=== PATIENT | female | born 1955 | race African-American/Black ===

== ENCOUNTER 2016-12-24 10:43 | Emergency (ER) | payer OTHER ==
[~2016-12-24] VITALS: Ht 167.6 cm; Wt 51.3 kg
[~2016-12-24 10:43] MED LIST: CIPRO250 MG PO; DETROL LA4 MG PO; FLEXERIL10 MG PO; KEFLEX500 MG PO; MACROBID100 MG PO; MIRALAX17 GM PO; MOBIC7.5 MG PO; MOTRIN800 MG PO; NEURONTIN300 MG PO; NO MEDS; PERCOCET 5/31 TABLET PO; PHENERGAN-CODE120 ML PO; PRILOSEC OTC20 MG PO; PYRIDIUM100 MG PO; ULTRAM50 MG PO; ZOFRAN ODT8 MG PO; ZOFRAN4 MG PO; ZOFRAN8 MG PO; ZYRTEC10 M2 PO
[2016-12-24 12:14] LABS: HEMATOCRIT 41.7 % (36.0-46.0); MCH 30.8 PG (29.0-34.0); MCHC 33.8 G/DL (30.0-36.0); MEAN PLAT.VOLUME 9.2 uM^3 (9.5-12.4); PLATELET COUNT 189 K/uL (156-360); RBC DIS.WIDTH-CV 12.7 % (11.8-14.6); RBC DIS.WIDTH-SD 42.3 % (39-53); RED BLOOD COUNT 4.58 M/uL (3.80-5.20); WHITE BLOOD COUNT 5.5 K/uL (4.1-10.2)
[2016-12-24 12:32] LABS: CHLORIDE 109 mEq/L (99-109); POTASSIUM 3.8 mEq/L (3.7-5.4); SODIUM 140 mEq/L (136-147)
[2016-12-24 12:34] LABS: GLUCOSE 91 mg/dL (70-99)
[2016-12-24 12:35] LABS: ANION GAP 7 MEQ/L (2-14)
[2016-12-24 12:38] LABS: ALKALINE PHOSPHATASE 77 IU/L (3-129); GFR ESTIMATE (CALCULATED) > 59 mL/min/
[2016-12-24 12:39] LABS: UREA NITROGEN (BUN) 12 mg/dL (9-23)
[2016-12-24 12:41] LABS: LIPASE 54 U/L (1.0-51.0)
[2016-12-24 13:23] LABS: ADD MIUA? YES; BILIRUBIN NEGATIVE; BLOOD NEGATIVE; COLOR YELLOW ((YELLOW)); GLUCOSE (STRIP) NEGATIVE; KETONES NEGATIVE; LEUKOCYTES LARGE; NITRITE NEGATIVE; PROTEIN (STRIP) NEGATIVE; SPECIFIC GRAVITY 1.008 (1.000-1.030)
[2016-12-24 13:47] LABS: BACTERIA RARE /HPF; EPITHELIAL CELLS RARE /HPF; MUCUS TRACE /LPF; RED BLOOD CELLS 0-5 /HPF (0-5); UCUL ADDED? YES; WHITE BLOOD CELLS TNTC /HPF (0-5)
[2016-12-24] MEDS ORDERED: CEFUROXIME250 MG PO (16:09)
[2016-12-24 16:49] VITALS: BP 144/96
== END 2016-12-24 16:58 | disposition home or self-care (01) ==
LOC: EME 10:43 → EXP 10:43
DX: N39.0 Urinary tract infection, site not specified (principal); Z87.440 Personal history of urinary (tract) infections; Z86.73 Personal history of transient ischemic attack (TIA), and cerebral infarction without residual deficits; F17.200 Nicotine dependence, unspecified, uncomplicated
CPT/HCPCS: 74020; 74177; 80053; 81003; 83690; 85027; 87086; 87177; 87206; 87493; 87506; 99281; 99285; J0696; J7030; J7050

== ENCOUNTER 2017-12-27 12:16 | Emergency (ER) | payer OTHER ==
[~2017-12-27] VITALS: Ht 170.2 cm; Wt 50.0 kg
[~2017-12-27 12:16] MED LIST changes: +CEFUROXIME250 MG PO
[2017-12-27 12:58] LABS: APPEARANCE CLOUDY ((CLEAR)); BILIRUBIN NEGATIVE; BLOOD MODERATE; COLOR AMBER ((YELLOW)); GLUCOSE (STRIP) NEGATIVE; KETONES NEGATIVE; LEUKOCYTES LARGE; NITRITE NEGATIVE; PROTEIN (STRIP) 100; SPECIFIC GRAVITY 1.009 (1.000-1.030); UROBILINOGEN 0.2 MG/DL (0.2-1.0)
[2017-12-27 13:04] LABS: HEMATOCRIT 36.8 % (36.0-46.0); MCH 33.5 PG (29.0-34.0); MCHC 35.3 G/DL (30.0-36.0); MCV 94.8 FL (83-99); PLATELET COUNT 161 K/uL (156-360); RBC DIS.WIDTH-SD 48.6 % (39-53); RED BLOOD COUNT 3.88 M/uL (3.80-5.20); WHITE BLOOD COUNT 5.3 K/uL (4.1-10.2)
[2017-12-27 13:14] LABS: ALBUMIN 3.6 g/dL (3.2-4.8); CHLORIDE 106 mEq/L (99-109); POTASSIUM 4.6 mEq/L (3.7-5.4); SODIUM 139 mEq/L (136-147)
[2017-12-27 13:17] LABS: GLUCOSE 78 mg/dL (70-99)
[2017-12-27 13:19] LABS: TOTAL BILIRUBIN 0.5 mg/dL (0.0-1.0)
[2017-12-27 13:20] LABS: ALKALINE PHOSPHATASE 106 IU/L (3-129); CREATININE 0.9 mg/dL (0.6-1.3); GFR ESTIMATE (CALCULATED) > 59 mL/min/
[2017-12-27 13:21] LABS: UREA NITROGEN (BUN) 12 mg/dL (9-23)
[2017-12-27 13:22] LABS: AST (GOT) 74 IU/L (2-34)
[2017-12-27 13:23] LABS: ALT (GPT) 57 IU/L (3-49)
[2017-12-27 13:26] LABS: UCUL ADDED? YES; WHITE BLOOD CELLS TNTC /HPF (0-5)
[2017-12-27] MEDS ORDERED: CIPRO250 MG PO (13:31)
[2017-12-27] MEDS ORDERED: PYRIDIUM100 MG PO (13:31)
[2017-12-27 13:53] VITALS: BP 118/106
== END 2017-12-27 13:54 | disposition home or self-care (01) ==
LOC: EME 12:16
DX: N39.0 Urinary tract infection, site not specified (principal); Z87.440 Personal history of urinary (tract) infections; Z86.73 Personal history of transient ischemic attack (TIA), and cerebral infarction without residual deficits; F17.200 Nicotine dependence, unspecified, uncomplicated
CPT/HCPCS: 80053; 81003; 85027; 87077; 87086; 87186; 99281; 99284